=== PATIENT | female | born 1975 ===

== ENCOUNTER 2020-01-16 10:15 | Inpatient (IN) | payer OTHER ==
[~2020-01-16] VITALS: Ht 152.4 cm; Wt 59.0 kg
== END 2020-01-25 11:00 | DRG 743 ==
LOC: OB/GYN 01-23 06:10 → O/R 01-23 06:10 → OB/GYN 01-23 07:00
PROVIDERS: ADMIT Obstetrics & Gynecology; ATTEND Obstetrics & Gynecology
PROC: 0UT20ZZ Resection of Bilateral Ovaries, Open Approach (ICD-10-PCS; 2020-01-23)
PROC: 0UT70ZZ Resection of Bilateral Fallopian Tubes, Open Approach (ICD-10-PCS; 2020-01-23)
PROC: 0DNW0ZZ Release Peritoneum, Open Approach (ICD-10-PCS; 2020-01-23)
PROC: 0UT90ZZ Resection of Uterus, Open Approach (ICD-10-PCS; principal; 2020-01-23 07:00)
DX: N83.292 Other ovarian cyst, left side (principal); N83.291 Other ovarian cyst, right side; N72 Inflammatory disease of cervix uteri; N73.6 Female pelvic peritoneal adhesions (postinfective); K66.8 Other specified disorders of peritoneum